=== PATIENT | male | born 1990 | race Caucasian/White ===

== ENCOUNTER 2017-08-23 15:07 | Emergency (ER) | payer SELFPAY ==
[~2017-08-23] VITALS: Ht 167.6 cm; Wt 85.7 kg
[2017-08-23 17:45] VITALS: BP 138/90
== END 2017-08-23 17:45 | disposition home or self-care (01) ==
LOC: ED 15:07
DX: R07.89 Other chest pain (principal); R51 Headache; R42 Dizziness and giddiness
CPT/HCPCS: J1885; Q0092